=== PATIENT | female | born 1960 | race Caucasian/White ===

== ENCOUNTER 2018-01-09 21:53 | Inpatient (IN) | payer OTHER ==
[~2018-01-09] VITALS: Ht 157.5 cm; Wt 58.7 kg
[2018-01-09] MEDS ORDERED: LEVO50TA PO (23:16)
[2018-01-10] MEDS ORDERED: ACETAMINOPHEN 325 MG TABLET PO PRN
[2018-01-10] MEDS ORDERED: LORA0.5T PO
[2018-01-10] MEDS ORDERED: DOCUSATE 100 MG CAPSULE PO PRN
[2018-01-10] MEDS ORDERED: ONDANSETRON ODT 4 MG PO PRN
[2018-01-10] MEDS ORDERED: LORazepam 0.5MG TABLET PO PRN
[2018-01-10 00:01] VITALS: BP 152/87
[2018-01-10] MEDS: PLEASE ENTER ALLERGIES MC SCH ×3 (00:30→08:33)
[2018-01-10] MEDS: PLEASE ENTER HEIGHT AND WEIGHT MC SCH ×3 (00:30→08:33)
[2018-01-10] MEDS: ENOXAPARIN 40 MG/0.4 ML SQ SCH (00:49)
[2018-01-10 04:00] VITALS: BP 121/74
[2018-01-10 05:12] LABS: BASOPHILS # (AUTO) 0.02 x10^3/uL (0-0.1); BASOPHILS % (AUTO) 0 % (0-1); EOSINOPHILS # (AUTO) 0.13 x10^3/uL (0-0.4); EOSINOPHILS % (AUTO) 3 % (1-7); LYMPHOCYTES # (AUTO) 1.54 x10^3/uL (1-3.4); LYMPHOCYTES % (AUTO) 32 % (22-44); MD NO; MEAN CORPUSCULAR HEMOGLOBIN 33.9 pg (27.0-34.8); MEAN CORPUSCULAR HGB CONC 34.1 g/dL (32.4-35.8); MEAN CORPUSCULAR VOLUME 99.2 fL (80-100); MEAN PLATELET VOLUME 7.4 fL (7.4-10.4); MONOCYTES # (AUTO) 0.41 x10^3/uL (0.2-0.8); MONOCYTES % (AUTO) 8 % (2-9); NEUTROPHILS # (AUTO) 2.76 x10^3/uL (1.8-6.8); NEUTROPHILS % (AUTO) 57 % (42-75); PLATELET COUNT 281 x10^3/uL (130-400); RED BLOOD COUNT 4.12 x10^6/uL (3.82-5.3); RED CELL DISTRIBUTION WIDTH 12.3 % (9.6-15.2)
[2018-01-10 05:18] LABS: CHLORIDE 110 mmol/L (98-107)
[2018-01-10 05:27] LABS: ALANINE AMINOTRANSFERASE 21 U/L (12-78); ALBUMIN 3.9 g/dL (3.4-5.0); ALKALINE PHOSPHATASE 68 U/L (45-117); ANION GAP 10 mmol/L (5-15); BILIRUBIN,TOTAL 0.8 mg/dL (0.2-1.0); CALCIUM 8.9 mg/dL (8.5-10.1); CHOL/HDL RATIO 2.2; CHOLESTEROL, TOTAL 220 mg/dL (140-239); CREATININE 0.65 mg/dL (0.55-1.02); HDL CHOL % 46 % (28-40); HDL CHOLESTEROL (DIRECT) 101 mg/dL (40-60); LDL CHOLESTEROL,CALCULATED 95 mg/dL (54-169); LDL/HDL RATIO 0.9 (0.5-3.0); TOTAL PROTEIN 6.9 g/dL (6.4-8.2); TRIGLYCERIDES 118 mg/dL (50-200); VLDL CHOLESTEROL 24 mg/dL (0-25)
[2018-01-10] MEDS: LEVOTHYROXINE 50 MCG TABLET PO SCH (06:17)
[2018-01-10 06:54] VITALS: BP 130/74
[2018-01-10] MEDS: LORazepam 0.5MG TABLET PO PRN (08:35)
[2018-01-10] MEDS: DIPHENHYDRAMINE 25 MG CAPSULE PO PRN (08:35)
[2018-01-10] MEDS ORDERED: ASPIRIN 325 MG TABLET PO ONE (09:00)
[2018-01-10] MEDS ORDERED: GADOBUTROL 7.5 MMOL/7.5 ML PFS ONE (09:33)
[2018-01-10 12:16] VITALS: BP 108/69
[2018-01-10 13:16] LABS: HEMOGLOBIN A1C 5.2 % (4.2-6.3)
[2018-01-10] MEDS ORDERED: hydrALAzine 20 MG/ML, 1ML IVPush PRN ×2 (16:00)
[2018-01-10 18:46] VITALS: BP 141/86
[2018-01-10] MEDS ORDERED: ATORVASTATIN 40 MG TABLET PO SCH (21:00)
[2018-01-11] MEDS: PLEASE ENTER ALLERGIES MC SCH ×2 (00:30→07:45)
[2018-01-11] MEDS: PLEASE ENTER HEIGHT AND WEIGHT MC SCH ×2 (00:30→07:45)
[2018-01-11] MEDS: ENOXAPARIN 40 MG/0.4 ML SQ SCH (01:54)
[2018-01-11 02:00] VITALS: BP 122/77
[2018-01-11] MEDS ORDERED: ASPIRIN 325 MG TABLET PO SCH (06:00)
[2018-01-11] MEDS: LEVOTHYROXINE 50 MCG TABLET PO SCH (06:09)
[2018-01-11 06:35] VITALS: BP 117/69
[2018-01-11] MEDS: DIPHENHYDRAMINE 25 MG CAPSULE PO PRN (10:45)
[2018-01-11] MEDS: LORazepam 0.5MG TABLET PO PRN (10:45)
[2018-01-11] MEDS ORDERED: GADOBUTROL 7.5 MMOL/7.5 ML PFS ONE (11:17)
[2018-01-11 12:16] VITALS: BP 115/75
[2018-01-11] MEDS ORDERED: LEVO50TA PO (14:57)
[2018-01-12] MEDS ORDERED: LEVOTHYROXINE 75 MCG TABLET PO SCH (06:00)
== END 2018-01-11 15:52 | disposition home or self-care (01) | DRG 74 ==
LOC: 4EST 22:43 → DCLOUNGE 01-11 15:35
PROVIDERS: ADMIT Internal Medicine; ATTEND Internal Medicine
DX: G56.30 Lesion of radial nerve, unspecified upper limb (principal); M48.02 Spinal stenosis, cervical region; E03.9 Hypothyroidism, unspecified; E87.6 Hypokalemia; F06.4 Anxiety disorder due to known physiological condition; M21.331 Wrist drop, right wrist; Z80.3 Family history of malignant neoplasm of breast
CPT/HCPCS: 36415; 70544; 70547; 70553; 71045; 72156; 80053; 80061; 82607; 83036; 84443; 85025; 99285; A9585; J1650; Q0163